=== PATIENT | female | born 1960 | race Caucasian/White ===

== ENCOUNTER → 2016-07-06 | Outpatient (CLI) | payer OTHER ==
--- NOTE | 2016-07-06 18:51 | ECHO ---
DATE OF PROCEDURE: 07/06/2016 REFERRING PHYSICIAN: Dr. Nino INDICATION: Systemic sclerosis. Study was performed on an outpatient basis. HEIGHT: 168 cm WEIGHT: 123 kg DIMENSIONS: IVS: 1.2 LV: 4.1 LVPW: 1.2 LA: 3.8 Aorta: 3.1 FINDINGS: The study is of fair technical quality. Left ventricle is normal size and systolic function with estimated ejection fraction (EF) around 60-65%. Mild left ventricular hypertrophy (LVH) is noted. Right ventricle is also normal size and systolic function. Both atria are mildly enlarged. Aortic valve is minimally sclerotic but has normal mobility. Mitral, tricuspid and pulmonic valves all appear normal. No pericardial effusion is noted. Inferior vena cava is normal size and appropriately collapses with respiration indicative of normal central venous pressure. Aortic root and aortic arch appear normal. Abdominal aorta was not visualized. Doppler interrogation reveals no aortic stenosis or insufficiency. There is trace mitral insufficiency and trace tricuspid insufficiency. Estimated pulmonary artery pressure is in the 30s corresponding to mild pulmonary hypertension. Pulmonic valve is functionally competent. Mitral inflow pattern and tissue Doppler imaging of mitral annulus reveals probably grade 2 diastolic dysfunction. There is normal mitral inflow pattern and reduced tissue Doppler velocities of mitral annulus (6.6 and 8.6 cm/sec, septal and lateral annulus respectively). CONCLUSIONS: 1. Study is of acceptable technical quality. 2. Normal left ventricle (LV) size with mild LVH and preserved LV systolic function. Probably grade 2 diastolic dysfunction. 3. No hemodynamically significant valvular disease. 4. Likely normal central venous pressure and mild pulmonary hypertension. COMMENT: Subacute bacterial endocarditis (SBE) prophylaxis is not recommended. MTDD
== END ==
LOC: M CARPUL 08:53
PROVIDERS: ATTEND Internal Medicine Rheumatology
DX: M34.9 Systemic sclerosis, unspecified (principal); I27.2 Other secondary pulmonary hypertension

== ENCOUNTER → 2016-07-13 | Outpatient (CLI) | payer OTHER ==
[2016-07-13 12:26] LABS: BASO # 0.1 K/mm3 (0.0-0.2); BASO % 0.8 % (0.0-1.0); EOS # 0.4 K/mm3 (0.0-0.50); LYMPH # 2.8 K/mm3 (1.5-4.5); LYMPH % 31.4 % (24.0-44.0); MEAN CORPUSCULAR HEMOGLOBIN 30.8 pg (27.0-33.0); MEAN CORPUSCULAR HGB CONC 31.8 g/dl (32.0-36.5); MEAN CORPUSCULAR VOLUME 96.8 fl (80.0-96.0); MONO # 0.5 K/mm3 (0.0-0.8); MONO % 5.1 % (0.0-5.0); NEUTROPHILS # 4.9 K/mm3 (1.8-7.7); NEUTROPHILS % 56.4 % (36.0-66.0); RED CELL DISTRIBUTION WIDTH 12.8 % (11.5-14.5); WHITE BLOOD COUNT 8.8 K/mm3 (4.0-10.0)
[2016-07-13 12:48] LABS: ALBUMIN 3.5 GM/DL (3.2-5.2); ALKALINE PHOSPHATASE 57 U/L (45-117); ALT/SGPT 20 U/L (12-78); AST/SGOT 14 U/L (15-37); BLOOD UREA NITROGEN 13 MG/DL (7-18); COMPLEMENT C3 116 MG/DL (90-180); COMPLEMENT C4 24.1 MG/DL (10-40); CREATININE FOR GFR 0.87 MG/DL (0.55-1.02); GLOMERULAR FILTRATION RATE > 60.0 (>51); MAGNESIUM LEVEL 2.2 MG/DL (1.8-2.4); TOTAL PROTEIN 6.2 GM/DL (6.4-8.2)
[2016-07-14 14:13] LABS: ANTI SCLERODERMA ANTIBODIES <0.2 AI (0.0-0.9)
[2016-07-17 11:17] LABS: ALBUMIN % 58.3 % (55.8-66.1)
[2016-07-17 11:18] LABS: ALBUMIN 3.61 GM/DL (3.29-5.55); GAMMA GLOBULIN % 17.2 % (11.1-18.8)
== END ==
LOC: M WUC 07-10 08:15
PROVIDERS: ATTEND Internal Medicine Rheumatology
DX: M34.9 Systemic sclerosis, unspecified (principal)

== ENCOUNTER → 2016-07-13 | Outpatient (CLI) | payer OTHER ==
[2016-07-13 12:23] LABS: ANION GAP 8 MEQ/L (8-16); BLOOD UREA NITROGEN 13 MG/DL (7-18); CARBON DIOXIDE LEVEL 28 MEQ/L (21-32); CHLORIDE LEVEL 108 MEQ/L (98-107); CREATININE FOR GFR 0.88 MG/DL (0.55-1.02); GLOMERULAR FILTRATION RATE > 60.0 (>51); GLUCOSE, FASTING 68 MG/DL (70-105); POTASSIUM SERUM 4.1 MEQ/L (3.5-5.1); SODIUM LEVEL 144 MEQ/L (136-145)
== END ==
LOC: M WUC 07-10 08:25
PROVIDERS: ATTEND Family Medicine
DX: I10 Essential (primary) hypertension (principal)

== ENCOUNTER → 2016-11-26 | Outpatient (CLI) | payer OTHER ==
--- NOTE | 2016-11-26 17:31 | REP ---
Clinical: Hip pain. Technique: Neutral and frog lateral views of the right hip. Findings: Degenerative changes include joint space narrowing, subchondral sclerosis and subtle marginal spurring along the acetabular rim as well as subtle spurring along the inferior margin of the femoral head. No acute fracture dislocation. No periarticular calcifications. Surrounding soft tissues normal. Impression: Moderate degenerative changes. Signed by Migel Jenkins MD 11/26/2016 05:22 P
== END ==
LOC: M WUC 17:06
PROVIDERS: ATTEND Physician Assistant
DX: M17.11 Unilateral primary osteoarthritis, right knee (principal)

== ENCOUNTER → 2017-04-30 | Outpatient (CLI) | payer OTHER ==
--- NOTE | 2017-04-30 10:48 | REPMRS ---
Patient History The patient states she had a clinical breast exam in 04/2017. Patient is postmenopausal and is nulliparous. Family history of breast cancer in sister at age 56. Digital Woman Screen Mammo: April 30, 2017 - Exam #: [id number] Bilateral CC and MLO view(s) were taken. Technologist: Ami Fuller, Technologist Prior study comparison: June 25, 2012, left breast uni digital dianostic mammo, performed at [facility] ([facility]). May 15, 2012, left breast digital mammo diagnostic unilateral, performed at [facility]. FINDINGS: There are scattered fibroglandular densities. There has been no change in the appearance of the mammogram from the prior studies. There is a mild amount of scattered fibroglandular density which is fairly symmetric. There is no interval development of dominant mass, architectural distortion, or clustered microcalcification suggestive of malignancy. ASSESSMENT: BI-RADS/ACR category 1 mammogram. Negative. Recommendation Routine screening mammogram in 1 year (for women over age 40). This patient's Lifetime Breast Cancer RIsk is estimated at 20.9 %. Annual screening Breast MRI scanniing is recommended for patient's whose lifetime risk assessment is over 20%. This mammogram was interpreted with the aid of an FDA-approved computer-aided dectection system. Electronically Signed By: Cristi Osei MD 04/30/17 [id number]
== END ==
LOC: M WHC 08:38
PROVIDERS: ATTEND Nurse Practitioner Family
DX: Z12.31 Encounter for screening mammogram for malignant neoplasm of breast (principal)

== ENCOUNTER → 2017-04-30 | Outpatient (REF) | payer OTHER | LOC: M SFHCWAGY 09:40 | PROVIDERS: ATTEND Nurse Practitioner Family | DX: Z12.4 Encounter for screening for malignant neoplasm of cervix (principal) ==

== ENCOUNTER → 2017-06-29 | Outpatient (REF) | payer OTHER | LOC: M LAB REF 17:43 | DX: R30.0 Dysuria (principal) | CPT/HCPCS: 87086 ==

== ENCOUNTER → 2017-10-08 | Outpatient (REF) | payer OTHER ==
[2017-10-08 18:00] LABS: COMPLEMENT C3 145 MG/DL (90-180)
[2017-10-08 18:00] LABS: C REACTIVE PROTEIN QUANTITATIV 0.32 MG/DL (0.00-0.30); COMPLEMENT C4 33.6 MG/DL (10-40)
[2017-10-10 14:15] LABS: ANTI SCLERODERMA ANTIBODIES <0.2 AI (0.0-0.9)
[2017-10-10 14:15] LABS: ANTI CENTROMERE ANTIBODY <0.2 AI (0.0-0.9)
== END ==
LOC: M LAB REF 17:04
DX: M34.9 Systemic sclerosis, unspecified (principal)

== ENCOUNTER → 2017-12-02 | Outpatient (CLI) | payer BC, OTHER | LOC: M CARPUL 08:22 | DX: M34.9 Systemic sclerosis, unspecified (principal) | CPT/HCPCS: 93306 ==

== ENCOUNTER → 2018-01-06 | Outpatient (CLI) | payer BC, OTHER | LOC: M CARPUL 14:43 | DX: R94.2 Abnormal results of pulmonary function studies (principal); M34.9 Systemic sclerosis, unspecified | CPT/HCPCS: 94010 ==

== ENCOUNTER → 2018-04-23 | Outpatient (REF) | payer OTHER ==
[2018-04-25 14:10] LABS: ANTI SCLERODERMA ANTIBODIES <0.2 AI (0.0-0.9)
[2018-04-25 14:10] LABS: ANTI CENTROMERE ANTIBODY <0.2 AI (0.0-0.9)
== END ==
LOC: M LAB REF 13:06
DX: M34.9 Systemic sclerosis, unspecified (principal)
CPT/HCPCS: 86255

== ENCOUNTER → 2018-05-02 | Outpatient (CLI) | payer BC | LOC: M WHC 08:31 | DX: Z12.31 Encounter for screening mammogram for malignant neoplasm of breast (principal); R92.1 Mammographic calcification found on diagnostic imaging of breast; Z78.0 Asymptomatic menopausal state; Z80.3 Family history of malignant neoplasm of breast | CPT/HCPCS: 77067 ==

== ENCOUNTER 2018-10-03 08:44 | Day surgery (SDC) | payer BC, OTHER ==
[~2018-10-03] VITALS: Ht 162.6 cm; Wt 122.9 kg
[~2018-10-03 08:44] MED LIST: D3 H10002 PO; ENDO5TAB PO; FURO80TA2 PO; LOSA50TA88 PO; MAGN400C PO; MULTCAP PO; NS 1,000 ML IV ONE; OMEP40CA2 PO; SPIR-10 PO
[2018-10-03] MEDS ORDERED: PROPOFOL 200 MG/20 ML VIAL As Ordered ONE (11:02)
[2018-10-03] MEDS ORDERED: LIDOCAINE 2% INJ 100 MG/5 ML SDV (FOR ANES.) As Ordered ONE (11:02)
--- NOTE | 2018-10-03 11:04 | ROOR ---
Patient Name: Mart Arana Procedure Date: 10/03/2018 10:48 AM Date of : 1960 Age: 58 Room: [facility] Gender: Female Note Status: Finalized Procedure: Upper Endoscopy + Biopsies Indications: Heartburn, Exclusion of Moya's esophagus, Preoperative assessment for bariatric surgery to treat morbid obesity Providers: Joby Ward MD Referring MD: Jennifer Osorio DO Requesting Provider: Medicines: Monitored Anesthesia Care Complications: No immediate complications. Procedure: Pre-Anesthesia Assessment: - The heart rate, respiratory rate, oxygen saturations, blood pressure, adequacy of pulmonary ventilation, and response to care were monitored throughout the procedure. The Endoscope was introduced through the mouth, and advanced to the second part of duodenum. The upper GI endoscopy was accomplished without difficulty. The patient tolerated the procedure well. Findings: The Z-line was irregular and was found 38 cm from the incisors. Multiple biopsies were obtained with cold forceps for evaluation to rule out Moya's Esophagus randomly at the gastroesophageal junction. A small hiatal hernia was present. No other significant abnormalities were identified in a careful examination of the stomach. The exam of the duodenum was otherwise normal. Impression: - Z-line irregular, 38 cm from the incisors. - Small hiatal hernia. - Multiple biopsies were obtained at the gastroesophageal junction. - The examination was otherwise normal. Recommendation: - Patient has a contact number available for emergencies. The signs and symptoms of potential delayed complications were discussed with the patient. Return to normal activities tomorrow. Written discharge instructions were provided to the patient. - High fiber diet. - Discharge patient to home. - Continue present medications. - Await pathology results. - Telephone GI clinic for pathology results in 1 week. - Return to referring physician. - The findings and recommendations were discussed with the patient's family. Joby Ward MD Joby Ward MD 10/03/2018 11:03:56 AM Electronically signed by Joby Ward MD Number of Addenda: 0 Note Initiated On: 10/03/2018 10:48 AM Estimated Blood Loss: Estimated blood loss: none.
[2018-10-03 11:25] VITALS: BP 178/86
== END 2018-10-03 11:41 | disposition home or self-care (01) ==
LOC: M OPP 08:44
PROVIDERS: ATTEND Internal Medicine Gastroenterology
DX: K22.8 Other specified diseases of esophagus (principal); K44.9 Diaphragmatic hernia without obstruction or gangrene; R12 Heartburn; E66.01 Morbid (severe) obesity due to excess calories

== ENCOUNTER 2019-01-28 13:59 | Emergency (ER) | payer BC, OTHER ==
[~2019-01-28] VITALS: Ht 162.6 cm; Wt 118.2 kg
[~2019-01-28 13:59] MED LIST changes: -NS 1,000 ML IV ONE; -OMEP40CA2 PO; +OMEP40CA97 PO
[2019-01-28] MEDS ORDERED: METO1TAB32 OR (14:23)
[2019-01-28] MEDS ORDERED: ASPI81TA26 OR (14:23)
[2019-01-28] MEDS ORDERED: DICL75TA OR (14:23)
[2019-01-28] MEDS ORDERED: MONT10TA2 OR (14:23)
[2019-01-28] MEDS ORDERED: TOLT60TA OR (14:23)
[2019-01-28] MEDS ORDERED: NS 1,000 ML IV SCH (14:34)
[2019-01-28] MEDS ORDERED: METOPROLOL 5 MG/5 ML VIAL IV STA (14:34)
[2019-01-28] MEDS ORDERED: METOPROLOL TART 25 MG TABLET PO ONE (14:45)
--- NOTE | 2019-01-28 15:31 | REP ---
Portable chest x-ray: Single view. History: Chest pain. Comparison chest x-ray: February 20, 2008. Findings: EKG monitoring electrodes overlie the chest. Lungs are symmetrically aerated and free of infiltrate. Pleural angles are sharp. Heart is not enlarged. Pulmonary vasculature is not increased. Impression: No acute disease. Electronically Signed by Sam Osei MD 01/28/2019 03:23 P
[2019-01-28 15:48] LABS: BASO # 0.1 10^3/uL (0.0-0.2); BASO % 1.2 % (0.0-1.0); EOS # 0.3 10^3/uL (0.0-0.50); HEMATOCRIT 41.6 % (36.0-47.0); HEMOGLOBIN 13.8 g/dl (12.0-15.5); LYMPH # 1.8 10^3/uL (1.5-4.5); MEAN CORPUSCULAR HEMOGLOBIN 32.3 pg (27.0-33.0); MEAN CORPUSCULAR HGB CONC 33.2 g/dl (32.0-36.5); MEAN CORPUSCULAR VOLUME 97.4 fl (80.0-96.0); MONO # 0.9 10^3/uL (0.0-0.8); MONO % 9.7 % (0.0-5.0); NEUTROPHILS # 6.5 10^3/uL (1.8-7.7); NEUTROPHILS % 66.8 % (36.0-66.0); PLATELET COUNT, AUTOMATED 328 10^3/uL (150-450); RED BLOOD COUNT 4.27 10^6/uL (4.00-5.40); WHITE BLOOD COUNT 9.7 10^3/uL (4.0-10.0)
[2019-01-28 16:01] VITALS: BP 160/116
[2019-01-28 16:07] LABS: INR 1.08; PROTHROMBIN TIME 13.7 SECONDS (11.8-14.0)
[2019-01-28 16:08] LABS: PARTIAL THROMBOPLASTIN TIME 30.9 SECONDS (25.0-38.4)
[2019-01-28] MEDS ORDERED: ELIQ5TAB PO (16:08)
[2019-01-28 16:18] LABS: ALT/SGPT 28 U/L (12-78); BILIRUBIN,TOTAL 0.4 MG/DL (0.2-1.0); BLOOD UREA NITROGEN 22 MG/DL (7-18); CALCIUM LEVEL 9.3 MG/DL (8.5-10.1); CARBON DIOXIDE LEVEL 26 MEQ/L (21-32); CHLORIDE LEVEL 105 MEQ/L (98-107); CK-MB VALUE MASS 1.3 NG/ML (<3.6); CREATININE FOR GFR 0.97 MG/DL (0.55-1.30); GLOMERULAR FILTRATION RATE > 60.0 (>51); GLUCOSE, FASTING 81 MG/DL (70-100); LIPASE 85 U/L (73-393); SODIUM LEVEL 138 MEQ/L (136-145); TOTAL PROTEIN 7.6 GM/DL (6.4-8.2); TROPONIN I < 0.02 NG/ML (< 0.10)
--- NOTE | 2019-01-29 20:39 | ECGEPIP ---
[facility] - ED Test Date: 2019-01-28 Pat Name: JACE FRAZIER Department: Room: - Gender: Female Coder: : 1960 Requested By: MOISES LEONARDO Order Number: [id number] Reading MD: Margarita Ag Measurements Intervals [place] Rate: 88 P: SC: 0 QRS: 45 QRSD: 114 T: 10 QT: 409 QTc: 495 Interpretive Statements ATRIAL FLUTTER LOW QRS VOLTAGE IN PRECORDIAL LEADS MODERATE INTRAVENTRICULAR CONDUCTION DELAY NO PRIOR Electronically Signed on 01-29-2019 20:38:52 EDT by Margarita Ag
== END 2019-01-28 16:16 | disposition home or self-care (01) ==
LOC: M ED 13:59
DX: I48.92 Unspecified atrial flutter (principal); I10 Essential (primary) hypertension; I45.4 Nonspecific intraventricular block; K21.9 Gastro-esophageal reflux disease without esophagitis; Z82.49 Family history of ischemic heart disease and other diseases of the circulatory system; Z79.82 Long term (current) use of aspirin; Z79.01 Long term (current) use of anticoagulants; Z79.899 Other long term (current) drug therapy

== ENCOUNTER → 2019-02-06 | Outpatient (REF) | payer OTHER ==
[~2019-02-06] MED LIST changes: +ASPI81TA26 OR; +DICL75TA OR; +ELIQ5TAB PO; +METO1TAB32 OR; +MONT10TA2 OR; +OMEP40CA2 PO; -OMEP40CA97 PO; +TOLT60TA OR
== END ==
LOC: M LAB REF 16:32
PROVIDERS: ATTEND Internal Medicine
DX: I50.32 Chronic diastolic (congestive) heart failure (principal)

== ENCOUNTER → 2019-03-20 | Outpatient (REF) | payer OTHER ==
[~2019-03-20] MED LIST changes: -OMEP40CA2 PO; +OMEP40CA97 PO
== END ==
LOC: M LAB REF 12:20
PROVIDERS: ATTEND Internal Medicine
DX: I48.92 Unspecified atrial flutter (principal)

== ENCOUNTER → 2019-06-01 | Outpatient (REF) | payer OTHER | LOC: M LAB REF 17:00 | PROVIDERS: ATTEND Internal Medicine | DX: I48.92 Unspecified atrial flutter (principal) ==

== ENCOUNTER → 2019-06-17 | Outpatient (REF) | payer OTHER ==
[2019-06-17 12:47] LABS: HEMATOCRIT 42.4 % (36.0-47.0)
== END ==
LOC: M LAB REF 12:15
PROVIDERS: ATTEND Internal Medicine
DX: K91.2 Postsurgical malabsorption, not elsewhere classified (principal); Z86.39 Personal history of other endocrine, nutritional and metabolic disease; Z98.84 Bariatric surgery status

== ENCOUNTER → 2019-06-29 | Outpatient (CLI) | payer BC, OTHER ==
--- NOTE | 2019-06-29 10:34 | REPMRS ---
Patient History The patient states she had a clinical breast exam in June 2019.Family history of breast cancer at age 56 in sister. No Hormone Replacement Therapy 3D TOMOSYNTHESIS WAS PERFORMED. [facility] for [facility] cancer [facility] 19.[facility]%. Digital Woman Screen Mammo: June 29, 2019 - Exam #: [id number] Bilateral CC and MLO view(s) were taken. Technologist: Ana Cristina Benitez, Technologist Prior study comparison: May 02, 2018, bilateral digital woman screen mammo performed at [facility]. April 30, 2017, digital woman screen mammo performed at [facility]. FINDINGS: There are scattered fibroglandular densities. There has been no change in the appearance of the mammogram from the prior studies. There is a mild amount of residual fibroglandular tissue which is fairly symmetric. There is no interval development of dominant mass, architectural distortion, or clustered microcalcification suggestive of malignancy. Assessment: BI-RADS/ACR category 1 mammogram. Negative Mammogram. Recommendation Routine screening mammogram in 1 year (for women over age 40). This mammogram was interpreted with the aid of an FDA-approved computer-aided dectection system. Electronically Signed By: Amadeo Lopez MD 06/29/19 [id number]
== END ==
LOC: M WHC 08:28
PROVIDERS: ATTEND Nurse Practitioner Family
DX: Z12.31 Encounter for screening mammogram for malignant neoplasm of breast (principal); Z80.3 Family history of malignant neoplasm of breast
CPT/HCPCS: 77063; 77067; 87624; G0123

== ENCOUNTER → 2019-07-06 | Outpatient (REF) | payer OTHER | LOC: M LAB REF 16:08 | PROVIDERS: ATTEND Nurse Practitioner Family | DX: R30.0 Dysuria (principal) ==

== ENCOUNTER → 2019-11-05 | Outpatient (REF) | payer OTHER ==
[~2019-11-05] MED LIST changes: -MONT10TA2 OR; +MONT10TA4 OR
[2019-11-05 12:52] LABS: HEMATOCRIT 36.9 % (36.0-47.0)
[2019-11-05 13:06] LABS: PHOSPHORUS LEVEL 3.1 MG/DL (2.5-4.9)
== END ==
LOC: M LAB REF 11:17
PROVIDERS: ATTEND Internal Medicine
DX: K91.2 Postsurgical malabsorption, not elsewhere classified (principal); Z98.84 Bariatric surgery status; Z86.39 Personal history of other endocrine, nutritional and metabolic disease

== ENCOUNTER → 2020-04-26 | Outpatient (REF) | payer OTHER ==
[2020-04-26 11:59] LABS: HEMATOCRIT 39.2 % (36.0-47.0)
[2020-04-26 12:29] LABS: PERCENT SATURATION 23.2 % (13.2-45.0); PHOSPHORUS LEVEL 3.6 MG/DL (2.5-4.9)
== END ==
LOC: M LAB REF 11:15
PROVIDERS: ATTEND Internal Medicine
DX: K91.2 Postsurgical malabsorption, not elsewhere classified (principal); Z98.84 Bariatric surgery status; Z86.39 Personal history of other endocrine, nutritional and metabolic disease; E55.9 Vitamin D deficiency, unspecified

== ENCOUNTER → 2020-06-30 | Outpatient (CLI) | payer BC, OTHER ==
[~2020-06-30] MED LIST changes: -MONT10TA4 OR; +MONT5TAB2 OR
--- NOTE | 2020-06-30 10:42 | REPMRS ---
Patient History The patient states she had a clinical breast exam in June 2020. Patient is postmenopausal and is nulliparous. Family history of breast cancer at age 56 in sister, bladder cancer at age 60 in father. No Hormone Replacement Therapy Digital Woman Screen Mammo: June 30, 2020 - Exam #: [id number] Bilateral CC and MLO view(s) were taken. Technologist: Belle Short, Technologist Prior study comparison: June 29, 2019, bilateral digital woman screen mammo performed at [facility]. May 02, 2018, bilateral digital woman screen mammo performed at [facility]. April 30, 2017, digital woman screen mammo performed at [facility]. FINDINGS: The breast tissue is heterogeneously dense. This may lower the sensitivity of mammography. The Volpara volumetric breast density category is: C. There is a moderate amount of heterogeneously dense fibroglandular tissue which is fairly symmetric. There is no interval development of dominant mass, architectural distortion, or grouped microcalcification typical of malignancy. There has been no change in the appearance of the mammogram from the prior studies. 3-D tomosynthesis shows no additional findings. Assessment: BI-RADS/ACR category 1 mammogram. Negative Mammogram. Recommendation Routine screening mammogram of both breasts in 1 year (for women over age 40). This patient's [facility] Lifetime Breast Cancer RIsk is estimated at 19.2 %. This mammogram was interpreted with the aid of an FDA-approved computer-aided dectection system. Electronically Signed By: Cristi Osei MD 06/30/20 [id number]
== END ==
LOC: M WHC 08:29
PROVIDERS: ATTEND Nurse Practitioner Family
DX: Z12.31 Encounter for screening mammogram for malignant neoplasm of breast (principal); Z78.0 Asymptomatic menopausal state; Z80.3 Family history of malignant neoplasm of breast; Z80.52 Family history of malignant neoplasm of bladder

== ENCOUNTER → 2020-07-21 | Outpatient (REF) | payer OTHER ==
[~2020-07-21] MED LIST changes: +MONT10TA10 OR; -MONT5TAB2 OR
== END ==
LOC: M LAB REF 17:09
PROVIDERS: ATTEND Orthopaedic Surgery
DX: M67.442 Ganglion, left hand (principal)

== ENCOUNTER → 2020-11-14 | Outpatient (REF) | payer OTHER ==
[2020-11-14 14:30] LABS: PERCENT SATURATION 28.1 % (13.2-45.0)
== END ==
LOC: M LAB REF 12:29
PROVIDERS: ATTEND Internal Medicine
DX: Z98.84 Bariatric surgery status (principal)

== ENCOUNTER → 2021-05-03 | Outpatient (CLI) | payer BC, OTHER ==
[~2021-05-03] MED LIST changes: +LOSA50TA28 PO; -LOSA50TA88 PO; -MONT10TA10 OR; +MONT10TA97 OR; +OMEP40CA4 PO; -OMEP40CA97 PO
== END ==
LOC: M PLALAB 07:59
PROVIDERS: ATTEND Internal Medicine Rheumatology
DX: M16.0 Bilateral primary osteoarthritis of hip (principal)

== ENCOUNTER → 2021-11-23 | Outpatient (REF) | payer OTHER ==
[2021-11-23 13:26] LABS: PERCENT SATURATION 29.1 % (13.2-45.0)
== END ==
LOC: M LAB REF 11:30
PROVIDERS: ATTEND Internal Medicine
DX: Z98.84 Bariatric surgery status (principal)

== ENCOUNTER → 2021-12-05 | Outpatient (REF) | payer OTHER ==
[2021-12-06 13:09] LABS: ANTINUCLEAR ANTIBODIES DIRECT Negative (Negative)
== END ==
LOC: M LAB REF 11:32
PROVIDERS: ATTEND Internal Medicine
DX: M25.50 Pain in unspecified joint (principal)

== ENCOUNTER → 2021-12-08 | Outpatient (REF) | payer OTHER | LOC: M LAB REF 16:29 | PROVIDERS: ATTEND Internal Medicine | DX: I48.20 Chronic atrial fibrillation, unspecified (principal); Z51.81 Encounter for therapeutic drug level monitoring ==

== ENCOUNTER → 2022-01-31 | Outpatient (REF) | payer OTHER ==
[2022-01-31 11:04] LABS: APPEARANCE, URINE MANUAL CLEAR (CLEAR); BILIRUBIN, URINE MANUAL NEGATIVE (NEGATIVE); BLOOD URINE MANUAL TRACE (NEGATIVE); COLOR, URINE MANUAL YELLOW (YELLOW); GLUCOSE, URINE (UA) MANUAL NEGATIVE (NEGATIVE); KETONE, URINE MANUAL NEGATIVE (NEGATIVE); LEUKOCYTE ESTERASE, URINE MAN NEGATIVE (NEGATIVE); NITRITE, URINE MANUAL NEGATIVE (NEGATIVE); PROTEIN, URINE MANUAL NEGATIVE (NEGATIVE); SPECIFIC GRAVITY,URINE MANUAL 1.015 (1.002-1.035); UROBILINOGEN, URINE MANUAL NORMAL (NORMAL)
[2022-01-31 11:16] LABS: WBC, URINE 0-1 /hpf (0-3)
[2022-01-31 11:17] LABS: BACTERIA, URINE SMALL AMOUNT; RBC, URINE 0-1 /hpf (0-3); SQUAMOUS EPITHELIAL CELL URINE NONE SEEN /hpf (SMALL AMT)
[2022-01-31 11:50] LABS: CREATININE,RANDOM URINE 49.6 MG/DL; TOTAL PROTEIN,RANDOM URINE 5.6 MG/DL (0.0-12.0)
== END ==
LOC: M SFHCRHEU 08:46
PROVIDERS: ATTEND Internal Medicine Rheumatology
DX: M34.9 Systemic sclerosis, unspecified (principal); M15.9 Polyosteoarthritis, unspecified

== ENCOUNTER → 2022-02-08 | Outpatient (REF) | payer OTHER ==
[~2022-02-08] MED LIST changes: -ASPI81TA26 OR; +ASPI81TA26 PO; +DIGO0.123 PO; -METO1TAB32 OR; +METO1TAB32 PO; -MONT10TA97 OR; +MONT10TA97 PO; -TOLT60TA OR; +TOLT60TA PO; +VITA100093 PO; +VITMTA PO; +XARE10TA PO
[2022-02-08 13:17] LABS: BASO # 0.1 10^3/uL (0.0-0.2); BASO % 1.8 % (0.0-1.0); EOS # 0.2 10^3/uL (0.0-0.5); EOS % 3.9 % (0.0-3.0); HEMATOCRIT 35.4 % (36.0-47.0); LYMPH # 1.4 10^3/uL (1.5-5.0); LYMPH % 22.2 % (24.0-44.0); MEAN CORPUSCULAR HEMOGLOBIN 30.8 pg (27.0-33.0); MEAN CORPUSCULAR HGB CONC 31.1 g/dl (32.0-36.5); MEAN CORPUSCULAR VOLUME 99.2 fl (80.0-96.0); MONO # 0.6 10^3/uL (0.0-0.8); NEUTROPHILS # 3.8 10^3/uL (1.5-8.5); NEUTROPHILS % 61.5 % (36.0-66.0); PLATELET COUNT, AUTOMATED 318 10^3/uL (150-450); RED BLOOD COUNT 3.57 10^6/uL (4.00-5.40); WHITE BLOOD COUNT 6.2 10^3/uL (4.0-10.0)
[2022-02-08 13:55] LABS: ERYTHROCYTE SEDIMENTATION RATE 9 mm/hr (0-30)
[2022-02-08 14:12] LABS: ALBUMIN 3.5 GM/DL (3.2-5.2); ALT/SGPT 12 U/L (12-78); BILIRUBIN,TOTAL 0.4 MG/DL (0.2-1.0); BLOOD UREA NITROGEN 8 MG/DL (7-18); CARBON DIOXIDE LEVEL 25 MEQ/L (21-32); CHLORIDE LEVEL 110 MEQ/L (98-107); COMPLEMENT C3 97 MG/DL (90-180); COMPLEMENT C4 24 MG/DL (10-40); CREATININE FOR GFR 0.62 MG/DL (0.55-1.30); GLOMERULAR FILTRATION RATE > 60.0 (>45); GLUCOSE, FASTING 76 MG/DL (70-100); POTASSIUM SERUM 4.1 MEQ/L (3.5-5.1); SODIUM LEVEL 140 MEQ/L (136-145); TOTAL PROTEIN 6.3 GM/DL (6.4-8.2)
== END ==
LOC: M SFHCRHEU 07:02
PROVIDERS: ATTEND Internal Medicine Rheumatology
DX: M34.9 Systemic sclerosis, unspecified (principal); M15.9 Polyosteoarthritis, unspecified

== ENCOUNTER → 2022-02-21 | Outpatient (CLI) | payer BC, OTHER | LOC: M LABSMTC 11:48 | PROVIDERS: ATTEND Anesthesiology | DX: Z01.812 Encounter for preprocedural laboratory examination (principal); Z11.52 Encounter for screening for COVID-19 ==

== ENCOUNTER 2022-02-26 07:23 | Day surgery (SDC) | payer BC, OTHER ==
[~2022-02-26] VITALS: Ht 162.6 cm; Wt 73.0 kg
[~2022-02-26 07:23] MED LIST changes: +LIDOCAINE 1% SDV 5ML VIAL As Ordered ONE; +LR 1,000 ML IV SCH
[2022-02-26] MEDS: TETRACAINE 0.5% OPHTH SOLN 4ML OD SCH ×2 (08:40→09:03)
[2022-02-26] MEDS: PHENYLEPHRINE 2.5% OPHTH SOL 2ML OD SCH ×3 (08:41→09:03)
[2022-02-26] MEDS: FLURBIPROFEN 0.03% OPHTH SOLN 2.5 ML OD SCH ×2 (08:41→09:03)
[2022-02-26] MEDS: CYCLOPENTOLATE 1% OPHTH SOLN 2 ML BTL OD SCH ×3 (08:41→09:03)
[2022-02-26] MEDS ORDERED: MIDAZOLAM INJ 2MG/2ML VIAL (J2250 PER 1MG) As Ordered ONE (09:13)
[2022-02-26] MEDS ORDERED: fentaNYL 100 MCG/2 ML INJECTION As Ordered ONE (09:14)
[2022-02-26 11:15] VITALS: BP 136/66
== END 2022-02-26 11:18 | disposition home or self-care (01) ==
LOC: M SDC 07:23
PROVIDERS: ATTEND Ophthalmology
DX: H25.11 Age-related nuclear cataract, right eye (principal); I10 Essential (primary) hypertension; R60.0 Localized edema; Z79.82 Long term (current) use of aspirin; Z79.01 Long term (current) use of anticoagulants; Z79.899 Other long term (current) drug therapy; Z88.2 Allergy status to sulfonamides
CPT/HCPCS: 66984; J2250; J3010

== ENCOUNTER → 2022-06-11 | Outpatient (REF) | payer BC, OTHER ==
[~2022-06-11] MED LIST changes: -LIDOCAINE 1% SDV 5ML VIAL As Ordered ONE; -LR 1,000 ML IV SCH
== END ==
LOC: M LAB REF 16:04
PROVIDERS: ATTEND Internal Medicine
DX: I48.92 Unspecified atrial flutter (principal); I50.32 Chronic diastolic (congestive) heart failure

== ENCOUNTER 2022-06-14 18:52 | Emergency (ER) | payer BC, OTHER ==
[~2022-06-14] VITALS: Ht 162.6 cm; Wt 73.6 kg
[2022-06-14 20:28] VITALS: BP 142/68
== END 2022-06-14 20:29 | disposition home or self-care (01) ==
LOC: M ED 18:52
DX: S00.83XA Contusion of other part of head, initial encounter (principal); S02.2XXA Fracture of nasal bones, initial encounter for closed fracture; W01.0XXA Fall on same level from slipping, tripping and stumbling without subsequent striking against object, initial encounter; I10 Essential (primary) hypertension; E78.5 Hyperlipidemia, unspecified; K21.9 Gastro-esophageal reflux disease without esophagitis; Z98.84 Bariatric surgery status; Z86.79 Personal history of other diseases of the circulatory system; Z88.2 Allergy status to sulfonamides; Z79.82 Long term (current) use of aspirin; Z79.899 Other long term (current) drug therapy; Y92.009 Unspecified place in unspecified non-institutional (private) residence as the place of occurrence of the external cause; Y93.89 Activity, other specified; Y99.9 Unspecified external cause status

== ENCOUNTER → 2022-12-05 | Outpatient (REF) | payer OTHER ==
[2022-12-05 12:09] LABS: BASO # 0.1 10^3/uL (0.0-0.2); BASO % 1.4 % (0.0-1.0); EOS # 0.2 10^3/uL (0.0-0.5); EOS % 3.7 % (0.0-3.0); HEMATOCRIT 37.9 % (36.0-47.0); HEMOGLOBIN 11.9 g/dl (12.0-15.5); LYMPH # 1.4 10^3/uL (1.5-5.0); LYMPH % 24.6 % (24.0-44.0); MEAN CORPUSCULAR HEMOGLOBIN 30.4 pg (27.0-33.0); MEAN CORPUSCULAR HGB CONC 31.4 g/dl (32.0-36.5); MEAN CORPUSCULAR VOLUME 96.9 fl (80.0-96.0); MONO # 0.7 10^3/uL (0.0-0.8); MONO % 11.4 % (2.0-8.0); NEUTROPHILS # 3.3 10^3/uL (1.5-8.5); NEUTROPHILS % 58.4 % (36.0-66.0); PLATELET COUNT, AUTOMATED 318 10^3/uL (150-450); RED BLOOD COUNT 3.91 10^6/uL (4.00-5.40); WHITE BLOOD COUNT 5.7 10^3/uL (4.0-10.0)
[2022-12-05 12:16] LABS: C REACTIVE PROTEIN QUANTITATIV < 0.40 MG/DL (<1.0)
[2022-12-05 12:17] LABS: COMPLEMENT C3 101.8 MG/DL (90.0-170.0)
[2022-12-05 12:18] LABS: ALBUMIN 3.9 G/DL (3.2-5.2); ALKALINE PHOSPHATASE 92 U/L (46-116); ALT/SGPT 9 U/L (7.0-40); AST/SGOT 9 U/L (<34); BILIRUBIN,TOTAL 0.6 MG/DL (0.3-1.2); BLOOD UREA NITROGEN 9 MG/DL (9-23); CALCIUM LEVEL 9.8 MG/DL (8.3-10.6); CARBON DIOXIDE LEVEL 27 MMOL/L (20-31); CHLORIDE LEVEL 104 MMOL/L (98-107); CREATININE FOR GFR 0.57 MG/DL (0.55-1.30); GLOMERULAR FILTRATION RATE > 60.0 (>45); GLUCOSE, FASTING 83 MG/DL (74-106); POTASSIUM SERUM 4.5 MMOL/L (3.5-5.1); SODIUM LEVEL 137 MMOL/L (136-145); TOTAL PROTEIN 6.3 G/DL (5.7-8.2)
[2022-12-05 12:38] LABS: CREATININE,RANDOM URINE 32.8 MG/DL; TOTAL PROTEIN,RANDOM URINE < 6.0 MG/DL (0.0-14.0)
[2022-12-05 12:41] LABS: APPEARANCE, URINE CLEAR (CLEAR); BACTERIA, URINE AUTO 1+ (NEGATIVE); BILIRUBIN, URINE AUTO NEGATIVE (NEGATIVE); BLOOD, URINE BLOOD 1+ (NEGATIVE); COLOR, URINE YELLOW (YELLOW); GLUCOSE, URINE (UA) AUTO NEGATIVE (NEGATIVE); KETONE, URINE AUTO NEGATIVE (NEGATIVE); LEUKOCYTE ESTERASE, URINE AUTO 3+ (NEGATIVE); NITRITE, URINE AUTO NEGATIVE (NEGATIVE); PROTEIN, URINE AUTO NEGATIVE (NEGATIVE); RBC, URINE AUTO 1 /HPF (0-3); SPECIFIC GRAVITY URINE AUTO 1.006 (1.002-1.035); SQUAMOUS EPITHELIAL CELL UR AU 1 /HPF (0-6); UROBILINOGEN, URINE AUTO 0.2 mg/dL (0.0-2.0); WBC, URINE AUTO 15 /HPF (0-3)
[2022-12-05 13:40] LABS: ERYTHROCYTE SEDIMENTATION RATE 9 mm/hr (0-30)
== END ==
LOC: M SFHCRHEU 09:02
PROVIDERS: ATTEND Internal Medicine
DX: M34.9 Systemic sclerosis, unspecified (principal); M15.9 Polyosteoarthritis, unspecified

== ENCOUNTER → 2022-12-10 | Outpatient (REF) | payer OTHER ==
[2022-12-10 13:50] LABS: DIGOXIN LEVEL 0.8 NG/ML (0.8-2.0)
[2022-12-10 13:51] LABS: PERCENT SATURATION 12.4 % (13.2-45.0)
== END ==
LOC: M LAB REF 11:38
PROVIDERS: ATTEND Internal Medicine
DX: D50.9 Iron deficiency anemia, unspecified (principal); I50.32 Chronic diastolic (congestive) heart failure

== ENCOUNTER → 2023-01-08 | Outpatient (CLI) | payer OTHER, BC | LOC: M RAD 14:32 | PROVIDERS: ATTEND Internal Medicine Rheumatology | DX: M34.9 Systemic sclerosis, unspecified (principal); M15.9 Polyosteoarthritis, unspecified; J47.9 Bronchiectasis, uncomplicated; K44.9 Diaphragmatic hernia without obstruction or gangrene ==

== ENCOUNTER → 2023-01-23 | Outpatient (CLI) | payer BC, OTHER | LOC: M CARPUL 10:14 | PROVIDERS: ATTEND Internal Medicine Rheumatology | DX: M34.9 Systemic sclerosis, unspecified (principal); M15.9 Polyosteoarthritis, unspecified ==

== ENCOUNTER → 2023-01-25 | Outpatient (CLI) | payer BC, OTHER ==
[~2023-01-25] MED LIST changes: +ISOVUE-300 61% 100ML VIAL As Ordered ONE; +LIDOCAINE 1% MDV 20ML VIAL As Ordered ONE; +TRIAMCINOLONE ACETONIDE SUSP 40MG/ML 1ML VIAL As Ordered ONE
== END ==
LOC: M RAD 14:54
PROVIDERS: ATTEND Orthopaedic Surgery
DX: M16.0 Bilateral primary osteoarthritis of hip (principal)
CPT/HCPCS: 20610; 77002; J3301; Q9967

== ENCOUNTER → 2023-04-10 | Outpatient (CLI) | payer BC, OTHER | LOC: M RAD 10:51 | PROVIDERS: ATTEND Orthopaedic Surgery | DX: M16.11 Unilateral primary osteoarthritis, right hip (principal) | CPT/HCPCS: 20610; 77002; J3301; Q9967 ==

== ENCOUNTER 2023-04-21 08:54 | Emergency (ER) | payer BC, OTHER ==
[~2023-04-21] VITALS: Ht 162.6 cm; Wt 70.5 kg
[~2023-04-21 08:54] MED LIST changes: -ISOVUE-300 61% 100ML VIAL As Ordered ONE; -LIDOCAINE 1% MDV 20ML VIAL As Ordered ONE; -TRIAMCINOLONE ACETONIDE SUSP 40MG/ML 1ML VIAL As Ordered ONE
[2023-04-21] MEDS ORDERED: ACETAMINOPHEN 500 MG TAB PO ONE (09:25)
[2023-04-21] MEDS ORDERED: METO1TAB7 PO (09:27)
[2023-04-21] MEDS ORDERED: HYDR-3713 PO (11:55)
[2023-04-21 12:04] VITALS: BP 126/81; TEMP 97.8; O2SAT 98
== END 2023-04-21 12:15 | disposition home or self-care (01) ==
LOC: M ED 08:54
DX: S32.512A Fracture of superior rim of left pubis, initial encounter for closed fracture (principal); W01.0XXA Fall on same level from slipping, tripping and stumbling without subsequent striking against object, initial encounter; Y92.009 Unspecified place in unspecified non-institutional (private) residence as the place of occurrence of the external cause; Y93.01 Activity, walking, marching and hiking; Y99.8 Other external cause status; I50.20 Unspecified systolic (congestive) heart failure; I10 Essential (primary) hypertension; E78.5 Hyperlipidemia, unspecified; Z88.2 Allergy status to sulfonamides; Z79.899 Other long term (current) drug therapy; Z79.82 Long term (current) use of aspirin

== ENCOUNTER → 2023-06-05 | Outpatient (REF) | payer BC, OTHER ==
[~2023-06-05] MED LIST changes: +HYDR-3713 PO; +METO1TAB7 PO
[2023-06-05 12:42] LABS: BASO # 0.1 10^3/uL (0.0-0.2); BASO % 1.9 % (0.0-1.0); EOS # 0.3 10^3/uL (0.0-0.5); EOS % 4.5 % (0.0-3.0); HEMATOCRIT 37.6 % (36.0-47.0); HEMOGLOBIN 11.5 g/dl (12.0-15.5); LYMPH # 1.5 10^3/uL (1.5-5.0); LYMPH % 22.8 % (24.0-44.0); MEAN CORPUSCULAR HEMOGLOBIN 29.3 pg (27.0-33.0); MEAN CORPUSCULAR HGB CONC 30.6 g/dl (32.0-36.5); MEAN CORPUSCULAR VOLUME 95.9 fl (80.0-96.0); MONO # 0.5 10^3/uL (0.0-0.8); MONO % 7.7 % (2.0-8.0); NEUTROPHILS # 4.1 10^3/uL (1.5-8.5); NEUTROPHILS % 62.8 % (36.0-66.0); PLATELET COUNT, AUTOMATED 350 10^3/uL (150-450); RED BLOOD COUNT 3.92 10^6/uL (4.00-5.40); WHITE BLOOD COUNT 6.5 10^3/uL (4.0-10.0)
[2023-06-05 12:44] LABS: C REACTIVE PROTEIN QUANTITATIV < 0.40 MG/DL (<1.0)
[2023-06-05 12:45] LABS: ALBUMIN 3.6 G/DL (3.2-5.2); ALKALINE PHOSPHATASE 128 U/L (46-116); ALT/SGPT < 9 U/L (7.0-40); AST/SGOT 11 U/L (<34); BILIRUBIN,TOTAL 0.3 MG/DL (0.3-1.2); BLOOD UREA NITROGEN 11 MG/DL (9-23); CALCIUM LEVEL 9.4 MG/DL (8.3-10.6); CARBON DIOXIDE LEVEL 27 MMOL/L (20-31); CHLORIDE LEVEL 110 MMOL/L (98-107); COMPLEMENT C3 115.6 MG/DL (90.0-170.0); COMPLEMENT C4 28.1 MG/DL (12-36); CREATININE FOR GFR 0.55 MG/DL (0.55-1.30); GLOMERULAR FILTRATION RATE > 60.0 (>45); GLUCOSE, FASTING 92 MG/DL (74-106); POTASSIUM SERUM 4.4 MMOL/L (3.5-5.1); SODIUM LEVEL 143 MMOL/L (136-145); TOTAL PROTEIN 6.3 G/DL (5.7-8.2)
[2023-06-05 12:48] LABS: APPEARANCE, URINE CLOUDY (CLEAR); BACTERIA, URINE AUTO 1+ (NEGATIVE); BILIRUBIN, URINE AUTO NEGATIVE (NEGATIVE); BLOOD, URINE BLOOD NEGATIVE (NEGATIVE); CALCIUM OXALATE CRYSTALS LARGE; COLOR, URINE YELLOW (YELLOW); GLUCOSE, URINE (UA) AUTO NEGATIVE (NEGATIVE); KETONE, URINE AUTO TRACE mg/dL (NEGATIVE); LEUKOCYTE ESTERASE, URINE AUTO 2+ (NEGATIVE); MUCUS, URINE SMALL (NEGATIVE); NITRITE, URINE AUTO NEGATIVE (NEGATIVE); PROTEIN, URINE AUTO NEGATIVE (NEGATIVE); RBC, URINE AUTO 1 /HPF (0-3); SPECIFIC GRAVITY URINE AUTO 1.017 (1.002-1.035); SQUAMOUS EPITHELIAL CELL UR AU 1 /HPF (0-6); WBC, URINE AUTO 8 /HPF (0-3)
[2023-06-05 12:49] LABS: ERYTHROCYTE SEDIMENTATION RATE 11 mm/hr (0-30)
[2023-06-05 13:08] LABS: TOTAL PROTEIN,RANDOM URINE 14.6 MG/DL (0.0-14.0)
[2023-06-05 13:10] LABS: CREATININE,RANDOM URINE 89.2 MG/DL
== END ==
LOC: M SFHCRHEU 09:04
PROVIDERS: ATTEND Internal Medicine Rheumatology
DX: M34.9 Systemic sclerosis, unspecified (principal); M15.9 Polyosteoarthritis, unspecified

== ENCOUNTER → 2023-08-08 | Outpatient (CLI) | payer BC | LOC: M PLAIMG 09:09 | PROVIDERS: ATTEND Orthopaedic Surgery | DX: S32.512D Fracture of superior rim of left pubis, subsequent encounter for fracture with routine healing (principal) ==

== ENCOUNTER → 2023-09-25 | Outpatient (REF) | payer BC, OTHER ==
[2023-09-25 14:14] LABS: FERRITIN 20.2 NG/ML (7.3-270.7)
[2023-09-25 14:16] LABS: PERCENT SATURATION 15.5 % (13.2-45.0)
== END ==
LOC: M LAB REF 13:07
PROVIDERS: ATTEND Internal Medicine
DX: M16.9 Osteoarthritis of hip, unspecified (principal); M25.552 Pain in left hip

== ENCOUNTER → 2024-02-24 | Outpatient (REF) | payer OTHER ==
[2024-02-24 18:13] LABS: INR 1.32; PARTIAL THROMBOPLASTIN TIME 33.8 SECONDS (24.8-34.2)
== END ==
LOC: M LAB REF 16:31
PROVIDERS: ATTEND Internal Medicine
DX: Z01.818 Encounter for other preprocedural examination (principal)

== ENCOUNTER → 2024-08-13 | Outpatient (CLI) | payer OTHER, MEDICARE, BC ==
[2024-08-13 11:50] LABS: BASO # 0.1 10^3/uL (0.0-0.2); BASO % 2.7 % (0.0-1.0); EOS # 0.2 10^3/uL (0.0-0.5); HEMATOCRIT 26.2 % (36.0-47.0); HEMOGLOBIN 7.9 g/dl (12.0-15.5); LYMPH % 21.4 % (24.0-44.0); MEAN CORPUSCULAR HEMOGLOBIN 25.7 pg (27.0-33.0); MEAN CORPUSCULAR HGB CONC 30.2 g/dl (32.0-36.5); MEAN CORPUSCULAR VOLUME 85.3 fl (80.0-96.0); MONO # 0.5 10^3/uL (0.0-0.8); MONO % 11.4 % (2.0-8.0); NEUTROPHILS # 2.7 10^3/uL (1.5-8.5); NEUTROPHILS % 60.1 % (36.0-66.0); PLATELET COUNT, AUTOMATED 368 10^3/uL (150-450); RED BLOOD COUNT 3.07 10^6/uL (4.00-5.40); WHITE BLOOD COUNT 4.5 10^3/uL (4.0-10.0)
[2024-08-13 12:12] LABS: BLOOD UREA NITROGEN 12 MG/DL (9-23); CALCIUM LEVEL 8.9 MG/DL (8.3-10.6); CARBON DIOXIDE LEVEL 25 MMOL/L (20-31); CHLORIDE LEVEL 109 MMOL/L (98-107); CREATININE FOR GFR 0.63 MG/DL (0.55-1.30); GLOMERULAR FILTRATION RATE > 60.0 (>45); GLUCOSE, FASTING 114 MG/DL (74-106); POTASSIUM SERUM 4.3 MMOL/L (3.5-5.1); SODIUM LEVEL 143 MMOL/L (136-145)
== END ==
LOC: M PLALAB 08:57
PROVIDERS: ATTEND Registered Nurse
DX: I50.32 Chronic diastolic (congestive) heart failure (principal); I11.0 Hypertensive heart disease with heart failure

== ENCOUNTER → 2024-10-14 | Outpatient (REF) | payer MEDICARE, BC ==
[2024-10-14 15:21] LABS: FERRITIN 5.6 NG/ML (7.3-270.7)
[2024-10-14 15:26] LABS: PERCENT SATURATION 3.7 % (13.2-45.0)
== END ==
LOC: M LAB REF 12:31
PROVIDERS: ATTEND Internal Medicine
DX: D64.9 Anemia, unspecified (principal)

== ENCOUNTER → 2024-12-18 | Outpatient (REF) | payer MEDICARE, BC ==
[2024-12-18 15:47] LABS: IRON (FE) 104.0 UG/DL (50-170); PERCENT SATURATION 33.1 % (13.2-45.0)
== END ==
LOC: M LAB REF 14:50
PROVIDERS: ATTEND Internal Medicine
DX: D50.9 Iron deficiency anemia, unspecified (principal)

== ENCOUNTER → 2025-01-18 | Outpatient (REF) | payer MEDICARE, OTHER ==
[2025-01-18 14:32] LABS: IRON (FE) 74.0 UG/DL (50-170); PERCENT SATURATION 25.5 % (13.2-45.0)
== END ==
LOC: M LAB REF 13:43
PROVIDERS: ATTEND Internal Medicine
DX: D50.9 Iron deficiency anemia, unspecified (principal)

== ENCOUNTER → 2025-02-02 | Outpatient (CLI) | payer MEDICARE, OTHER ==
[2025-02-02 17:32] LABS: BASO # 0.1 10^3/uL (0.0-0.2); BASO % 1.7 % (0.0-1.0); EOS # 0.2 10^3/uL (0.0-0.5); EOS % 3.4 % (0.0-3.0); LYMPH # 1.0 10^3/uL (1.5-5.0); LYMPH % 19.7 % (24.0-44.0); MONO # 0.6 10^3/uL (0.0-0.8); MONO % 11.8 % (2.0-8.0); NEUTROPHILS # 3.3 10^3/uL (1.5-8.5); NEUTROPHILS % 63.2 % (36.0-66.0); PLATELET COUNT, AUTOMATED 337 10^3/uL (150-450)
[2025-02-02 17:57] LABS: ALT/SGPT 12.0 U/L (7.0-40); AST/SGOT 15.0 U/L (<34); CALCIUM LEVEL 9.2 MG/DL (8.3-10.6); CARBON DIOXIDE LEVEL 25.0 MMOL/L (20-31); CHLORIDE LEVEL 109.0 MMOL/L (98-107); CREATININE FOR GFR 0.81 MG/DL (0.55-1.30); GLOMERULAR FILTRATION RATE 80.5 (>45); POTASSIUM SERUM 4.1 MMOL/L (3.5-5.1); SODIUM LEVEL 144.0 MMOL/L (136-145)
== END ==
LOC: M PLALAB 13:12
PROVIDERS: ATTEND Internal Medicine
DX: I50.32 Chronic diastolic (congestive) heart failure (principal)

== ENCOUNTER 2025-03-09 05:58 | Day surgery (SDC) | payer MEDICARE, BC ==
[~2025-03-09] VITALS: Ht 162.6 cm; Wt 68.0 kg
[~2025-03-09 05:58] MED LIST changes: +B-12100010 PO; +MULTTAB61 PO; +OMEP-173 PO; +POTA99CA2 PO; +TOLT2TAB12 PO; +TURM500C10 PO; +VALS1TAB66 PO
[2025-03-09] MEDS ORDERED: LR 1,000 ML IV SCH (06:10)
[2025-03-09] MEDS ORDERED: ONDANSETRON 4MG 2ML VIAL As Ordered ONE (07:09)
[2025-03-09] MEDS ORDERED: dexAMETHasone 4 MG/ML 1 ML VIAL As Ordered ONE (07:09)
[2025-03-09] MEDS ORDERED: ROCURONIUM BROMIDE 50MG/5ML VIAL As Ordered ONE (07:11)
[2025-03-09] MEDS ORDERED: LIDOCAINE 2% 100 MG/5 ML SDV (FOR ANES.) As Ordered ONE (07:12)
[2025-03-09] MEDS ORDERED: MIDAZOLAM INJ 2 MG/2 ML VIAL As Ordered ONE (07:19)
[2025-03-09] MEDS: ceFAZolin SOD 2 GM IV ONCE IV ONE (08:34)
[2025-03-09] MEDS ORDERED: ACETAMINOPHEN 1000MG/100ML IV BAG As Ordered ONE (08:39)
[2025-03-09] MEDS ORDERED: dexmedeTOMIDine (4 MCG/ML) 200 MCG/50 ML BTL As Ordered ONE (08:39)
[2025-03-09] MEDS ORDERED: SUGAMMADEX SODIUM 500 MG/5 ML VIAL As Ordered ONE (09:39)
[2025-03-09] MEDS ORDERED: MORPHINE 4 MG/ML 1 ML VIAL IV PRN (10:05)
[2025-03-09] MEDS: ONDANSETRON 4MG 2ML VIAL IV PRN (10:41)
[2025-03-09 11:40] VITALS: BP 151/71; TEMP 98.1; O2SAT 97
== END 2025-03-09 11:40 | disposition home or self-care (01) ==
LOC: M SDC 05:58
PROVIDERS: ATTEND Surgery
DX: K43.2 Incisional hernia without obstruction or gangrene (principal); I48.91 Unspecified atrial fibrillation; I10 Essential (primary) hypertension; M34.1 CR(E)ST syndrome; K21.9 Gastro-esophageal reflux disease without esophagitis; Z79.899 Other long term (current) drug therapy; Z79.01 Long term (current) use of anticoagulants; Z88.2 Allergy status to sulfonamides; Z98.84 Bariatric surgery status; Z91.048 Other nonmedicinal substance allergy status
CPT/HCPCS: 49615; 49623; 88300; C1781; J0131; J0665; J0666; J0688; J1100; J2250; J2405; J3010